=== PATIENT | female | born 1985 | race Caucasian/White ===

== ENCOUNTER 2021-10-08 17:19 | Emergency (ER) | payer MEDICAID ==
[~2021-10-08] VITALS: Ht 152.4 cm; Wt 71.4 kg
[2021-10-08 17:39] VITALS: BP 121/81
[2021-10-08] MEDS ORDERED: ketorolac trometh inj. 60 MG/2 ML VIAL IM ONE (18:15)
[2021-10-08] MEDS ORDERED: clindamycin 150mg capsule PO ONE (19:00)
[2021-10-08] MEDS ORDERED: CLIN-97 PO (19:07)
[2021-10-08] MEDS ORDERED: cephalexin 500mg capsule PO ONE (19:30)
[2021-10-08] MEDS ORDERED: sulfamethoxazole/trimethoprim DS (800/160mg) tablet PO ONE (19:30)
[2021-10-08] MEDS ORDERED: SULF1TAB49 PO (19:33)
[2021-10-08] MEDS ORDERED: CEPH-268 PO (19:33)
== END 2021-10-08 19:42 | disposition home or self-care (01) ==
LOC: ER 17:20
DX: L03.011 Cellulitis of right finger (principal); Z88.0 Allergy status to penicillin; Z91.041 Radiographic dye allergy status
CPT/HCPCS: 73130; 96372; 99283; J1885; A6449

== ENCOUNTER 2022-07-01 22:02 | Emergency (ER) | payer MEDICAID ==
[~2022-07-01 22:02] MED LIST: CLIN-97 PO
== END 2022-07-01 23:08 | disposition left against medical advice (07) ==
LOC: ER 22:03
DX: R11.10 Vomiting, unspecified (principal); R50.9 Fever, unspecified; Z53.21 Procedure and treatment not carried out due to patient leaving prior to being seen by health care provider

== ENCOUNTER 2023-01-07 10:50 | Emergency (ER) | payer MEDICAID ==
[~2023-01-07] VITALS: Ht 152.4 cm; Wt 69.4 kg
[2023-01-07 11:28] VITALS: BP 95/62; PULSE 92; RESP 16; TEMP 99.5; O2SAT 100
--- NOTE | 2023-01-07 12:14 | NUR ---
PT STATES "SHE THINKS SHE IS 2 MONTHS "
[2023-01-07] MEDS ORDERED: ACET325T55 PO (12:42)
[2023-01-07] MEDS ORDERED: CLIN300C71 PO (12:42)
== END 2023-01-07 12:51 | disposition home or self-care (01) ==
LOC: ER 10:50
DX: K02.9 Dental caries, unspecified (principal)
CPT/HCPCS: 99283

== ENCOUNTER 2023-02-25 04:29 | Emergency (ER) | payer MEDICAID ==
[~2023-02-25] VITALS: Ht 152.4 cm; Wt 71.8 kg
[2023-02-25 04:58] VITALS: BP 108/65; PULSE 109; TEMP 98.1; O2SAT 100
[2023-02-25] MEDS ORDERED: ondansetron 4mg rapidly disintigrating tab PO ONE (05:05)
[2023-02-25] MEDS ORDERED: azithromycin 250mg tablet PO ONE (05:05)
[2023-02-25] MEDS ORDERED: acetaminophen 325mg tablet PO ONE (05:05)
[2023-02-25 05:32] VITALS: RESP 18
[2023-02-25] MEDS ORDERED: AZIT-164 PO (06:02)
--- NOTE | 2023-02-25 06:28 | NUR ---
Pt sleeping comfortably in bed at this time. Significant other awake at bedside, updated that we are waiting on covid swab results. Will continue to monitor.
--- NOTE | 2023-02-25 07:27 | NUR ---
Pt and significant other not at bedside upon discharge. Pt was called on her cellphone, left detailed voicemail. Asked pt to call ER if she has any questions.
--- NOTE | 2023-02-25 07:31 | NUR ---
Spoke w/ Sanjiv, partner, regarding discharge instructions along w/ rx. Pharmacy verified. Sanjiv verbalized understanding to d/c instructions over telephone.
== END 2023-02-25 07:32 | disposition home or self-care (01) ==
LOC: ER 04:29
DX: R05.9 Cough, unspecified (principal); M54.9 Dorsalgia, unspecified; K08.89 Other specified disorders of teeth and supporting structures; Z20.822 Contact with and (suspected) exposure to COVID-19
CPT/HCPCS: 87811; 99284